=== PATIENT | female | born 1950 | race Caucasian/White ===

== ENCOUNTER → 2020-11-08 | Outpatient (CLI) | payer OTHER ==
[~2020-11-08] VITALS: Ht 154.9 cm; Wt 59.0 kg
[~2020-11-08] MED LIST: ALLEGRA ALLERG180 MG PO; BIOTIN1 M1 PO; CARVEDILOL6.25 M1 PO; COZAAR 25 MG TA25 M1 PO; ELIQUIS5 M1 PO; FAMOTIDINE 20 M20 MG PO; FISH OIL 1,0001 EAC9 PO; HYDROCHLOROTHIA25 M2 PO; LEVO-T100 MCG PO; LIPITOR20 MG PO; NITROSTAT0.4 M1 SUBLING; SLEEP AID50 MG PO; UNICOMPLEX M TA1 TA1 PO; VITAMIN B-121000 MC2 PO; VITAMIN C500 M1 PO; VITAMIN D3250 MC1 PO
[2020-11-08 15:39] VITALS: BP 164/81
--- NOTE | 2020-11-08 17:51 | NUR ---
IN FOR 1ST DOSE OF DAPTOMYCIN FOR RT BREAST INFECTION. ADMISSION HISTORY AND ASSESSMENT COMPLETED. MEDICATION RECONCILED. PATIENT HAS NO ALLERGIES. PICC LINE IN PLACE TO RIGHT UPPER ARM. [facility] WITHOUT DIFFICULTY. TOLERATED INFUSON WITHOUT INCIDENT. TO CONTINUE AT HOME WITH HOME HEALTH. NO REACTION NOTED. DISMISSED IN STABLE CONDITION.
== END ==
LOC: OPONC 12:29
PROVIDERS: ATTEND Specialist
DX: N61.0 Mastitis without abscess (principal)
CPT/HCPCS: 95000